=== PATIENT | female | born 1960 | race Caucasian/White ===

== ENCOUNTER 2017-02-20 13:43 | Emergency (ER) | payer SELFPAY ==
[2017-02-20 13:55] VITALS: BP 108/53
--- NOTE | 2017-02-20 15:33 | RAD ---
INDICATION: Right elbow trauma. TECHNIQUE: 4 views of the right elbow were obtained. FINDINGS: The bones are normal alignment. No joint effusion is seen. There is a small fracture fragment measuring approximately 3 mm in size arising from the tip of the coronoid process of the ulna. Joint spaces appear maintained. IMPRESSION: SMALL FRACTURE FRAGMENT ARISING FROM THE TIP OF THE CORONOID PROCESS OF THE ULNA.
--- NOTE | 2017-02-20 15:35 | UC ---
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 Has been aching since then but going to work, here for evaluation today. - History of Current Complaint Chief Complaint: UCUpperExtremity Stated Complaint: ELBOW INJURY Time Seen by Provider: 02/20/17 15:08 Hx Obtained From: Patient ?: No Severity Initially: Moderate Severity Currently: Mild Location Of Pain: Is Discrete @ Character: Aching Aggravating Factor(s): Movement - touching or banging L elbow. Associated Signs And Symptoms: Positive: Negative - Allergies/Home Medications Allergies/Adverse Reactions: Allergies Allergy/AdvReac Type Severity Reaction Status Date / Time No Known Allergies Allergy Verified 02/20/17 13:54 Home Medications: Home Medications Bupropion HCl [Wellbutrin Sr] 100 mg PO 02/20/17 [History] Sertraline HCl [Zoloft] 150 mg PO 02/20/17 [History] PMH/Surg Hx/FS Hx/Imm Hx Previously Healthy: Yes - Surgical History Surgical History: Yes - Social History Occupation: Employed Part-time - business intelligence director Alcohol Use: None Substance Use Type: None Smoking Status (MU): Never Smoked Tobacco Review of Systems Constitutional: Negative Skin: Negative Eyes: Negative ENT: Negative Respiratory: Negative Cardiovascular: Negative Gastrointestinal: Negative Genitourinary: Negative Motor: Negative Neurovascular: Negative Musculoskeletal: Arthralgia - L elbow Neurological: Negative Psychological: Negative All Other Systems Reviewed And Are Negative: Yes Physical Exam Triage Information Reviewed: Yes Appearance: Well-Appearing, No Pain Distress, Well-Nourished Vital Signs: Initial Vital Signs Temp 98.5 F 02/20/17 13:52 Pulse 94 02/20/17 13:52 Resp 18 02/20/17 13:52 BP 108/53 02/20/17 13:52 Pulse Ox 97 02/20/17 13:52 Vital Signs Reviewed: Yes Eye Exam: Normal Eyes: Positive: Conjunctiva Clear ENT Exam: Normal ENT: Positive: Normal ENT inspection Neck exam: Normal Neck: Positive: Supple, Nontender Respiratory Exam: Normal Respiratory: Positive: Chest non-tender, Lungs clear, Normal breath sounds, No respiratory distress, No accessory muscle use Cardiovascular Exam: Normal Cardiovascular: Positive: RRR, No Murmur Musculoskeletal Exam: Other - no bony tenderness in L elbow Musculoskeletal: Positive: Strength Intact, ROM Intact Neurological Exam: Normal Neurological: Positive: Alert Psychological Exam: Normal Skin Exam: Normal Elbow Pain Course/Dx - Course Course Of Treatment: Advised pt to f/u with ortho because of x-ray finding. That particular bony injury is not likely from a simple contusion and pt has full strength and ROM, so I do not think it is acute. - Differential Dx/Diagnosis Provider Diagnoses: L elbow contusion. fracture of coronoid process of the L elbow presumed to be old Discharge - Discharge Plan Condition: Stable Disposition: HOME Patient Education Materials: Contusion in Adults (ED) Referrals: Mumtaz Winn MD [Medical Doctor] - 1 Week Additional Instructions: You appear to have a nerve contusion. The fracture in your elbow is very likely to be old, but you should follow up with the orthopedist to make sure.
== END 2017-02-20 15:48 | disposition home or self-care (01) ==
LOC: UCEAST 13:43
DX: S50.02XA Contusion of left elbow, initial encounter (principal); S52.041A Displaced fracture of coronoid process of right ulna, initial encounter for closed fracture; W22.8XXA Striking against or struck by other objects, initial encounter; Y93.9 Activity, unspecified; Y92.9 Unspecified place or not applicable
CPT/HCPCS: 99212; G0463

== ENCOUNTER 2023-05-22 14:10 | Inpatient (IN) ==
[2023-05-22] MEDS ORDERED: Senna TAB 8.6 mg TAB PO PRN (15:46)
[2023-05-22] MEDS ORDERED: Magnesium Hydroxide LIQ 30 ML UDC PO PRN (15:46)
[2023-05-22] MEDS ORDERED: ceFAZolin 2 GM in NS PREMIX 2 GM/100 ML BAG IVPB SCH (17:00)
[2023-05-22] MEDS: ceFAZolin 2 GM PREMIX 2 GM/50 ML BAG IV SCH (18:00)
[2023-05-22] MEDS: Enoxaparin 40 MG/0.4 ML SYR SUBCUT SCH (18:00)
[2023-05-23] MEDS: ceFAZolin 2 GM PREMIX 2 GM/50 ML BAG IV SCH ×3 (00:56→18:55)
[2023-05-23 07:00] LABS: ABS Lymphocytes 1.2 10^3/uL (1.0-4.8); ABS Monocytes 0.7 10^3/uL (0.0-0.9); ABS Neutrophils 10.2 10^3/uL (1.5-7.6); Eosinophil % 0.4 %; Hematocrit 27.4 % (35-45); Hemoglobin 9.4 g/dL (11.5-14.3); Lymphocyte % 9.5 %; Mean Corpuscular Hemoglobin 31.2 pg (27-33); Mean Corpuscular Hgb Conc 34.4 g/dL (31-36); Mean Corpuscular Volume 90.7 fL (80-97); Mean Platelet Volume 6.7 fL (7.5-11.2); Platelet Count 325 10^3/uL (150-450); Red Blood Count 3.02 10^6/uL (3.63-4.92); Red Cell Distribution Width 12.8 % (12-17); White Blood Count 12.1 10^3/uL (3.8-11.8)
[2023-05-23 07:16] LABS: Albumin 2.9 g/dL (3.2-5.2); Albumin/Globulin Ratio 0.9 (1-3); C Reactive Protein 334.9 mg/L (<8.01); Calcium 7.9 mg/dL (8.6-10.3); Creatinine, Serum 0.51 mg/dL (0.51-0.95); Globulin 3.1 g/dL (2-4); Potassium 3.6 mmol/L (3.5-5.0); Total Bilirubin 0.3 mg/dL (0.2-1.0); eGFR CKD-EPI 104.8 (>60)
[2023-05-23] MEDS: Enoxaparin 40 MG/0.4 ML SYR SUBCUT SCH (18:23)
[2023-05-24] MEDS: ceFAZolin 2 GM PREMIX 2 GM/50 ML BAG IV SCH ×3 (01:07→16:53)
[2023-05-24] MEDS: Enoxaparin 40 MG/0.4 ML SYR SUBCUT SCH (15:05)
[2023-05-25] MEDS: ceFAZolin 2 GM PREMIX 2 GM/50 ML BAG IV SCH ×3 (01:56→17:43)
[2023-05-25] MEDS: Enoxaparin 40 MG/0.4 ML SYR SUBCUT SCH (15:28)
[2023-05-26] MEDS: ceFAZolin 2 GM PREMIX 2 GM/50 ML BAG IV SCH ×3 (01:55→18:28)
[2023-05-26 05:56] LABS: ABS Lymphocytes 1.4 10^3/uL (1.0-4.8); ABS Monocytes 0.7 10^3/uL (0.0-0.9); ABS Neutrophils 6.6 10^3/uL (1.5-7.6); Eosinophil % 0.5 %; Hematocrit 27.7 % (35-45); Hemoglobin 9.6 g/dL (11.5-14.3); Lymphocyte % 15.8 %; Mean Corpuscular Hgb Conc 34.5 g/dL (31-36); Mean Corpuscular Volume 89.8 fL (80-97); Platelet Count 443 10^3/uL (150-450); Red Blood Count 3.09 10^6/uL (3.63-4.92); Red Cell Distribution Width 12.9 % (12-17); White Blood Count 8.7 10^3/uL (3.8-11.8)
[2023-05-26] MEDS: Enoxaparin 40 MG/0.4 ML SYR SUBCUT SCH (17:09)
[2023-05-26 17:30] LABS: Urine Appearance Cloudy; Urine Bilirubin Negative (Negative); Urine Blood Negative (Negative); Urine Color Yellow; Urine Glucose Negative (Negative); Urine Ketones Negative (Negative); Urine Nitrite Negative (Negative); Urine Protein 1+(30 mg/dL) (Negative); Urine Specific Gravity 1.028 (1.002-1.030); Urine Urobilinogen Negative (Negative)
[2023-05-26 17:38] LABS: Urine Bacteria Absent (Absent); Urine Red Blood Cell 1+(3-5/hpf) (Absent); Urine Squamous Epithelial Cell Present (Absent); Urine White Blood Cell Trace(0-5/hpf) (Absent)
[2023-05-27] MEDS: ceFAZolin 2 GM PREMIX 2 GM/50 ML BAG IV SCH ×3 (00:56→17:33)
[2023-05-27] MEDS: Enoxaparin 40 MG/0.4 ML SYR SUBCUT SCH (16:31)
[2023-05-28] MEDS: ceFAZolin 2 GM PREMIX 2 GM/50 ML BAG IV SCH ×3 (01:02→17:28)
[2023-05-28] MEDS: Enoxaparin 40 MG/0.4 ML SYR SUBCUT SCH (17:29)
[2023-05-29] MEDS: ceFAZolin 2 GM PREMIX 2 GM/50 ML BAG IV SCH ×3 (01:02→17:28)
[2023-05-29] MEDS: PAIN RELIEVING RUB (MENTHOL/SALICYLATE) 1 APPLIC TUBE TOPICAL PRN ×2 (11:39→19:59)
[2023-05-29] MEDS: Enoxaparin 40 MG/0.4 ML SYR SUBCUT SCH (15:42)
[2023-05-30] MEDS: ceFAZolin 2 GM PREMIX 2 GM/50 ML BAG IV SCH ×3 (01:33→16:53)
[2023-05-30 07:42] LABS: ABS Eosinophils 0.1 10^3/uL (0.0-0.5); ABS Lymphocytes 2.8 10^3/uL (1.0-4.8); ABS Monocytes 0.5 10^3/uL (0.0-0.9); ABS Neutrophils 6.2 10^3/uL (1.5-7.6); Eosinophil % 0.6 %; Hematocrit 27.5 % (35-45); Hemoglobin 9.4 g/dL (11.5-14.3); Lymphocyte % 29.5 %; Mean Corpuscular Hgb Conc 34.3 g/dL (31-36); Mean Corpuscular Volume 90.5 fL (80-97); Mean Platelet Volume 7.1 fL (7.5-11.2); Platelet Count 770 10^3/uL (150-450); Red Blood Count 3.04 10^6/uL (3.63-4.92); Red Cell Distribution Width 12.7 % (12-17); White Blood Count 9.7 10^3/uL (3.8-11.8)
[2023-05-30 08:39] LABS: Albumin/Globulin Ratio 0.8 (1-3); C Reactive Protein 189.68 mg/L (<8.01); Creatinine, Serum 0.69 mg/dL (0.51-0.95); Globulin 3.9 g/dL (2-4); Potassium 3.4 mmol/L (3.5-5.0); Total Bilirubin 0.3 mg/dL (0.2-1.0); Total Protein 6.9 g/dL (6.4-8.9); eGFR CKD-EPI 97.5 (>60)
[2023-05-30] MEDS: Enoxaparin 40 MG/0.4 ML SYR SUBCUT SCH (16:53)
[2023-05-30] MEDS ORDERED: Potassium Chlor 20 meq TAB.ER PO ONE (19:17)
[2023-05-30] MEDS: PAIN RELIEVING RUB (MENTHOL/SALICYLATE) 1 APPLIC TUBE TOPICAL PRN (20:52)
[2023-05-31] MEDS: ceFAZolin 2 GM PREMIX 2 GM/50 ML BAG IV SCH ×3 (00:50→17:35)
[2023-05-31] MEDS: Potassium Chlor 20 meq TAB.ER PO SCH (08:14)
[2023-05-31] MEDS: PAIN RELIEVING RUB (MENTHOL/SALICYLATE) 1 APPLIC TUBE TOPICAL PRN (08:15)
[2023-05-31] MEDS: Enoxaparin 40 MG/0.4 ML SYR SUBCUT SCH (15:40)
[2023-06-01] MEDS: ceFAZolin 2 GM PREMIX 2 GM/50 ML BAG IV SCH ×3 (00:56→17:38)
[2023-06-01] MEDS: Potassium Chlor 20 meq TAB.ER PO SCH (08:16)
[2023-06-01] MEDS: PAIN RELIEVING RUB (MENTHOL/SALICYLATE) 1 APPLIC TUBE TOPICAL PRN ×2 (12:28→18:23)
[2023-06-01] MEDS: Enoxaparin 40 MG/0.4 ML SYR SUBCUT SCH (16:34)
[2023-06-02] MEDS: ceFAZolin 2 GM PREMIX 2 GM/50 ML BAG IV SCH ×3 (01:10→19:03)
[2023-06-02] MEDS: Potassium Chlor 20 meq TAB.ER PO SCH (08:11)
[2023-06-02] MEDS: PAIN RELIEVING RUB (MENTHOL/SALICYLATE) 1 APPLIC TUBE TOPICAL PRN (08:26)
[2023-06-02] MEDS: Enoxaparin 40 MG/0.4 ML SYR SUBCUT SCH (15:59)
[2023-06-03] MEDS: ceFAZolin 2 GM PREMIX 2 GM/50 ML BAG IV SCH ×3 (01:39→17:37)
[2023-06-03] MEDS: Potassium Chlor 20 meq TAB.ER PO SCH (09:08)
[2023-06-03] MEDS: PAIN RELIEVING RUB (MENTHOL/SALICYLATE) 1 APPLIC TUBE TOPICAL PRN (12:13)
[2023-06-03] MEDS: Enoxaparin 40 MG/0.4 ML SYR SUBCUT SCH (17:38)
[2023-06-04] MEDS: ceFAZolin 2 GM PREMIX 2 GM/50 ML BAG IV SCH ×3 (00:24→17:23)
[2023-06-04] MEDS: Potassium Chlor 20 meq TAB.ER PO SCH (07:38)
[2023-06-04] MEDS: Enoxaparin 40 MG/0.4 ML SYR SUBCUT SCH (16:52)
[2023-06-04] MEDS: Nystatin SUSPENSION 100,000 UNITS/ML UDC PO SCH (20:48)
[2023-06-05] MEDS: ceFAZolin 2 GM PREMIX 2 GM/50 ML BAG IV SCH ×3 (00:51→17:56)
[2023-06-05] MEDS: Potassium Chlor 20 meq TAB.ER PO SCH (09:03)
[2023-06-05] MEDS: Nystatin SUSPENSION 100,000 UNITS/ML UDC PO SCH ×4 (11:27→20:11)
[2023-06-05] MEDS: Enoxaparin 40 MG/0.4 ML SYR SUBCUT SCH (16:06)
[2023-06-05] MEDS: HYDROcodone/ACETAMIN 5/325 mg TAB PO PRN ×2 (17:51→23:46)
[2023-06-06] MEDS: ceFAZolin 2 GM PREMIX 2 GM/50 ML BAG IV SCH ×3 (00:57→17:09)
[2023-06-06 06:39] LABS: ABS Lymphocytes 2.2 10^3/uL (1.0-4.8); ABS Monocytes 0.5 10^3/uL (0.0-0.9); ABS Neutrophils 4.6 10^3/uL (1.5-7.6); Eosinophil % 0.6 %; Hematocrit 26.5 % (35-45); Hemoglobin 9.1 g/dL (11.5-14.3); Lymphocyte % 29.1 %; Mean Corpuscular Hemoglobin 30.2 pg (27-33); Mean Corpuscular Hgb Conc 34.2 g/dL (31-36); Mean Corpuscular Volume 88.1 fL (80-97); Mean Platelet Volume 6.8 fL (7.5-11.2); Platelet Count 545 10^3/uL (150-450); Red Blood Count 3.01 10^6/uL (3.63-4.92); Red Cell Distribution Width 12.9 % (12-17); White Blood Count 7.4 10^3/uL (3.8-11.8)
[2023-06-06 06:52] LABS: Albumin/Globulin Ratio 0.7 (1-3); C Reactive Protein 152.86 mg/L (<8.01); Calcium 9.2 mg/dL (8.6-10.3); Creatinine, Serum 0.8 mg/dL (0.51-0.95); Globulin 4.1 g/dL (2-4); Potassium 3.9 mmol/L (3.5-5.0); Total Bilirubin 0.3 mg/dL (0.2-1.0); Total Protein 7.1 g/dL (6.4-8.9); eGFR CKD-EPI 82.7 (>60)
[2023-06-06] MEDS: Potassium Chlor 20 meq TAB.ER PO SCH (08:10)
[2023-06-06] MEDS: HYDROcodone/ACETAMIN 5/325 mg TAB PO PRN ×3 (08:10→20:41)
[2023-06-06] MEDS: Nystatin SUSPENSION 100,000 UNITS/ML UDC PO SCH ×4 (08:15→20:41)
[2023-06-06] MEDS ORDERED: NS 0.9% 1000 ml BAG 1,000 ML IV SCH (12:15)
[2023-06-06] MEDS: Enoxaparin 40 MG/0.4 ML SYR SUBCUT SCH (16:42)
[2023-06-06] MEDS: PAIN RELIEVING RUB (MENTHOL/SALICYLATE) 1 APPLIC TUBE TOPICAL PRN (20:41)
[2023-06-07] MEDS: HYDROcodone/ACETAMIN 5/325 mg TAB PO PRN ×5 (00:43→21:03)
[2023-06-07] MEDS: ceFAZolin 2 GM PREMIX 2 GM/50 ML BAG IV SCH ×3 (00:45→17:08)
[2023-06-07] MEDS: Potassium Chlor 20 meq TAB.ER PO SCH (08:38)
[2023-06-07] MEDS: PAIN RELIEVING RUB (MENTHOL/SALICYLATE) 1 APPLIC TUBE TOPICAL PRN (08:42)
[2023-06-07] MEDS: Nystatin SUSPENSION 100,000 UNITS/ML UDC PO SCH ×4 (08:45→21:04)
[2023-06-07] MEDS ORDERED: Hemorrhoidal OINT 1 TUBE PR PRN (11:47)
[2023-06-07] MEDS: Enoxaparin 40 MG/0.4 ML SYR SUBCUT SCH (17:04)
[2023-06-08] MEDS: ceFAZolin 2 GM PREMIX 2 GM/50 ML BAG IV SCH ×3 (01:46→16:13)
[2023-06-08] MEDS: HYDROcodone/ACETAMIN 5/325 mg TAB PO PRN ×4 (06:01→21:24)
[2023-06-08] MEDS: Potassium Chlor 20 meq TAB.ER PO SCH (09:05)
[2023-06-08] MEDS: Nystatin SUSPENSION 100,000 UNITS/ML UDC PO SCH ×4 (09:07→21:30)
[2023-06-08] MEDS: Enoxaparin 40 MG/0.4 ML SYR SUBCUT SCH (15:39)
[2023-06-08] MEDS: PAIN RELIEVING RUB (MENTHOL/SALICYLATE) 1 APPLIC TUBE TOPICAL PRN (19:15)
[2023-06-09] MEDS: HYDROcodone/ACETAMIN 5/325 mg TAB PO PRN ×5 (01:26→20:53)
[2023-06-09] MEDS: ceFAZolin 2 GM PREMIX 2 GM/50 ML BAG IV SCH ×3 (01:28→16:59)
[2023-06-09] MEDS: Potassium Chlor 20 meq TAB.ER PO SCH (09:06)
[2023-06-09] MEDS: Nystatin SUSPENSION 100,000 UNITS/ML UDC PO SCH ×4 (10:50→20:53)
[2023-06-09] MEDS: PAIN RELIEVING RUB (MENTHOL/SALICYLATE) 1 APPLIC TUBE TOPICAL PRN (12:08)
[2023-06-09] MEDS: Enoxaparin 40 MG/0.4 ML SYR SUBCUT SCH (16:14)
[2023-06-10] MEDS: ceFAZolin 2 GM PREMIX 2 GM/50 ML BAG IV SCH ×3 (01:01→17:31)
[2023-06-10] MEDS: HYDROcodone/ACETAMIN 5/325 mg TAB PO PRN ×5 (03:36→20:45)
[2023-06-10] MEDS: Nystatin SUSPENSION 100,000 UNITS/ML UDC PO SCH ×4 (08:12→22:02)
[2023-06-10] MEDS: Potassium Chlor 20 meq TAB.ER PO SCH (08:12)
[2023-06-10] MEDS: Enoxaparin 40 MG/0.4 ML SYR SUBCUT SCH (17:30)
[2023-06-11] MEDS: ceFAZolin 2 GM PREMIX 2 GM/50 ML BAG IV SCH ×3 (00:29→17:10)
[2023-06-11] MEDS: HYDROcodone/ACETAMIN 5/325 mg TAB PO PRN ×5 (03:09→23:23)
[2023-06-11] MEDS: Potassium Chlor 20 meq TAB.ER PO SCH (09:41)
[2023-06-11] MEDS: Nystatin SUSPENSION 100,000 UNITS/ML UDC PO SCH ×3 (09:50→18:05)
[2023-06-11] MEDS: Enoxaparin 40 MG/0.4 ML SYR SUBCUT SCH (16:07)
[2023-06-12] MEDS: ceFAZolin 2 GM PREMIX 2 GM/50 ML BAG IV SCH ×3 (00:55→17:25)
[2023-06-12] MEDS: HYDROcodone/ACETAMIN 5/325 mg TAB PO PRN ×4 (05:42→20:06)
[2023-06-12] MEDS: Potassium Chlor 20 meq TAB.ER PO SCH (07:32)
[2023-06-12] MEDS: Enoxaparin 40 MG/0.4 ML SYR SUBCUT SCH (15:55)
[2023-06-13] MEDS: ceFAZolin 2 GM PREMIX 2 GM/50 ML BAG IV SCH ×3 (00:45→17:27)
[2023-06-13] MEDS: HYDROcodone/ACETAMIN 5/325 mg TAB PO PRN ×4 (04:07→17:30)
[2023-06-13 06:42] LABS: ABS Lymphocytes 1.8 10^3/uL (1.0-4.8); ABS Monocytes 0.5 10^3/uL (0.0-0.9); ABS Nucleated RBC 0.01 10^3/ul; Eosinophil % 0.7 %; Hematocrit 24.2 % (35-45); Hemoglobin 8.3 g/dL (11.5-14.3); Lymphocyte % 28.7 %; Mean Corpuscular Hemoglobin 30.2 pg (27-33); Mean Corpuscular Hgb Conc 34.2 g/dL (31-36); Mean Corpuscular Volume 88.3 fL (80-97); Mean Platelet Volume 6.8 fL (7.5-11.2); Nucleated Red Blood Cells % 0.1 %/100WBC (0.0-0.8); Platelet Count 283 10^3/uL (150-450); Red Blood Count 2.74 10^6/uL (3.63-4.92); Red Cell Distribution Width 13.5 % (12-17); White Blood Count 6.4 10^3/uL (3.8-11.8)
[2023-06-13 07:09] LABS: Anion Gap 9 mmol/L (2-16); Blood Urea Nitrogen 9 mg/dL (6-24); C Reactive Protein 107.48 mg/L (<8.01); CO2 Carbon Dioxide 29 mmol/L (22-32); Calcium 8.8 mg/dL (8.6-10.3); Chloride 101 mmol/L (101-111); Creatinine, Serum 0.67 mg/dL (0.51-0.95); Glucose 102 mg/dL (70-100); Potassium 3.8 mmol/L (3.5-5.0); Sodium 139 mmol/L (135-145); eGFR CKD-EPI 98.1 (>60)
[2023-06-13 07:22] LABS: ALT < 3 U/L (7-52); AST 10 U/L (13-39); Albumin 2.8 g/dL (3.2-5.2); Albumin/Globulin Ratio 0.8 (1-3); Alkaline Phosphatase 117 U/L (35-149); Globulin 3.6 g/dL (2-4); Total Protein 6.4 g/dL (6.4-8.9)
[2023-06-13] MEDS: Potassium Chlor 20 meq TAB.ER PO SCH (09:43)
[2023-06-13] MEDS: Enoxaparin 40 MG/0.4 ML SYR SUBCUT SCH (17:26)
[2023-06-14] MEDS: HYDROcodone/ACETAMIN 5/325 mg TAB PO PRN ×5 (00:03→23:14)
[2023-06-14] MEDS: ceFAZolin 2 GM PREMIX 2 GM/50 ML BAG IV SCH ×3 (00:08→17:18)
[2023-06-14] MEDS: Potassium Chlor 20 meq TAB.ER PO SCH (08:11)
[2023-06-14] MEDS: Ondansetron ODT 4 mg TAB 4 MG TAB PO PRN (13:41)
[2023-06-14] MEDS: PAIN RELIEVING RUB (MENTHOL/SALICYLATE) 1 APPLIC TUBE TOPICAL PRN (14:16)
[2023-06-14] MEDS: Enoxaparin 40 MG/0.4 ML SYR SUBCUT SCH (16:23)
[2023-06-15] MEDS: ceFAZolin 2 GM PREMIX 2 GM/50 ML BAG IV SCH ×3 (01:19→17:04)
[2023-06-15] MEDS: HYDROcodone/ACETAMIN 5/325 mg TAB PO PRN ×4 (04:34→20:01)
[2023-06-15] MEDS: Potassium Chlor 20 meq TAB.ER PO SCH (08:10)
[2023-06-15] MEDS: Enoxaparin 40 MG/0.4 ML SYR SUBCUT SCH (16:00)
[2023-06-15] MEDS: PAIN RELIEVING RUB (MENTHOL/SALICYLATE) 1 APPLIC TUBE TOPICAL PRN (16:00)
[2023-06-15] MEDS: Ondansetron ODT 4 mg TAB 4 MG TAB PO PRN (19:20)
[2023-06-16] MEDS: HYDROcodone/ACETAMIN 5/325 mg TAB PO PRN ×5 (00:03→18:22)
[2023-06-16] MEDS: ceFAZolin 2 GM PREMIX 2 GM/50 ML BAG IV SCH ×3 (01:04→17:13)
[2023-06-16] MEDS: PAIN RELIEVING RUB (MENTHOL/SALICYLATE) 1 APPLIC TUBE TOPICAL PRN ×2 (08:12→17:08)
[2023-06-16] MEDS: Potassium Chlor 20 meq TAB.ER PO SCH (09:21)
[2023-06-16] MEDS: Enoxaparin 40 MG/0.4 ML SYR SUBCUT SCH (17:08)
[2023-06-17] MEDS: HYDROcodone/ACETAMIN 5/325 mg TAB PO PRN ×4 (00:35→18:10)
[2023-06-17] MEDS: ceFAZolin 2 GM PREMIX 2 GM/50 ML BAG IV SCH ×3 (00:38→17:33)
[2023-06-17 06:58] LABS: ABS Lymphocytes 1.8 10^3/uL (1.0-4.8); ABS Monocytes 0.5 10^3/uL (0.0-0.9); ABS Neutrophils 5.2 10^3/uL (1.5-7.6); Eosinophil % 0.6 %; Hematocrit 27.2 % (35-45); Mean Corpuscular Hemoglobin 29.3 pg (27-33); Mean Corpuscular Hgb Conc 33.2 g/dL (31-36); Mean Corpuscular Volume 88.1 fL (80-97); Mean Platelet Volume 6.9 fL (7.5-11.2); Platelet Count 351 10^3/uL (150-450); Red Blood Count 3.09 10^6/uL (3.63-4.92); Red Cell Distribution Width 13.7 % (12-17); White Blood Count 7.7 10^3/uL (3.8-11.8)
[2023-06-17 07:13] LABS: Anion Gap 8 mmol/L (2-16); Blood Urea Nitrogen 10 mg/dL (6-24); C Reactive Protein 96.31 mg/L (<8.01); CO2 Carbon Dioxide 29 mmol/L (22-32); Calcium 9.4 mg/dL (8.6-10.3); Chloride 100 mmol/L (101-111); Creatinine, Serum 0.75 mg/dL (0.51-0.95); Glucose 108 mg/dL (70-100); Potassium 4.1 mmol/L (3.5-5.0); Sodium 137 mmol/L (135-145); eGFR CKD-EPI 89.4 (>60)
[2023-06-17 07:15] LABS: ALT < 3 U/L (7-52); AST 10 U/L (13-39); Albumin 3.3 g/dL (3.2-5.2); Albumin/Globulin Ratio 0.8 (1-3); Alkaline Phosphatase 136 U/L (35-149); Globulin 4.2 g/dL (2-4); Total Protein 7.5 g/dL (6.4-8.9)
[2023-06-17] MEDS: Potassium Chlor 20 meq TAB.ER PO SCH (09:22)
[2023-06-17] MEDS: PAIN RELIEVING RUB (MENTHOL/SALICYLATE) 1 APPLIC TUBE TOPICAL PRN (16:01)
[2023-06-17] MEDS: Enoxaparin 40 MG/0.4 ML SYR SUBCUT SCH (16:01)
[2023-06-17] MEDS: Ondansetron ODT 4 mg TAB 4 MG TAB PO PRN (16:09)
[2023-06-18] MEDS: HYDROcodone/ACETAMIN 5/325 mg TAB PO PRN ×4 (00:17→16:20)
[2023-06-18] MEDS: Potassium Chlor 20 meq TAB.ER PO SCH (08:57)
[2023-06-18] MEDS: Ondansetron ODT 4 mg TAB 4 MG TAB PO PRN (11:06)
[2023-06-18] MEDS ORDERED: Al Hydrox/Mg Hydrox/Simet LIQ 30 ML UDC PO ONE (11:48)
[2023-06-18] MEDS: PAIN RELIEVING RUB (MENTHOL/SALICYLATE) 1 APPLIC TUBE TOPICAL PRN (12:18)
[2023-06-18 13:55] LABS: High Sensitivity Troponin 1 Hr < 3 pg/mL (<15)
[2023-06-18] MEDS: Enoxaparin 40 MG/0.4 ML SYR SUBCUT SCH (16:17)
[2023-06-19] MEDS: Ondansetron ODT 4 mg TAB 4 MG TAB PO PRN (05:13)
[2023-06-19] MEDS: HYDROcodone/ACETAMIN 5/325 mg TAB PO PRN ×3 (08:09→17:54)
[2023-06-19] MEDS: Potassium Chlor 20 meq TAB.ER PO SCH (08:10)
[2023-06-19] MEDS: Enoxaparin 40 MG/0.4 ML SYR SUBCUT SCH (15:51)
[2023-06-20] MEDS: HYDROcodone/ACETAMIN 5/325 mg TAB PO PRN ×5 (01:00→21:26)
[2023-06-20] MEDS: Potassium Chlor 20 meq TAB.ER PO SCH (08:30)
[2023-06-20] MEDS: Enoxaparin 40 MG/0.4 ML SYR SUBCUT SCH (16:40)
[2023-06-20] MEDS: Ondansetron ODT 4 mg TAB 4 MG TAB PO PRN (16:55)
[2023-06-21] MEDS: HYDROcodone/ACETAMIN 5/325 mg TAB PO PRN ×3 (05:08→19:44)
[2023-06-21] MEDS: Ondansetron ODT 4 mg TAB 4 MG TAB PO PRN ×2 (05:12→21:52)
[2023-06-21] MEDS: Potassium Chlor 20 meq TAB.ER PO SCH (10:03)
[2023-06-21] MEDS: Enoxaparin 40 MG/0.4 ML SYR SUBCUT SCH (16:08)
[2023-06-22] MEDS: HYDROcodone/ACETAMIN 5/325 mg TAB PO PRN ×4 (00:28→21:12)
[2023-06-22] MEDS: Potassium Chlor 20 meq TAB.ER PO SCH (08:46)
[2023-06-22] MEDS: Enoxaparin 40 MG/0.4 ML SYR SUBCUT SCH (15:36)
[2023-06-22] MEDS: Ondansetron ODT 4 mg TAB 4 MG TAB PO PRN (21:13)
[2023-06-23] MEDS: HYDROcodone/ACETAMIN 5/325 mg TAB PO PRN ×5 (02:08→19:43)
[2023-06-23] MEDS: Potassium Chlor 20 meq TAB.ER PO SCH (11:54)
[2023-06-23] MEDS: Enoxaparin 40 MG/0.4 ML SYR SUBCUT SCH (16:13)
[2023-06-24] MEDS: Ondansetron ODT 4 mg TAB 4 MG TAB PO PRN ×2 (05:18→21:41)
[2023-06-24 05:20] LABS: ABS Basophils 0.1 10^3/uL (0.0-0.1); ABS Eosinophils 0.1 10^3/uL (0.0-0.5); ABS Lymphocytes 2.1 10^3/uL (1.0-4.8); ABS Monocytes 0.4 10^3/uL (0.0-0.9); ABS Neutrophils 4.9 10^3/uL (1.5-7.6); Hematocrit 26.2 % (35-45); Hemoglobin 8.8 g/dL (11.5-14.3); Mean Corpuscular Hemoglobin 29.5 pg (27-33); Mean Corpuscular Hgb Conc 33.7 g/dL (31-36); Mean Corpuscular Volume 87.4 fL (80-97); Mean Platelet Volume 6.8 fL (7.5-11.2); Nucleated Red Blood Cells % 0.1 %/100WBC (0.0-0.8); Platelet Count 397 10^3/uL (150-450); Red Blood Count 2.99 10^6/uL (3.63-4.92); Red Cell Distribution Width 14.2 % (12-17); White Blood Count 7.5 10^3/uL (3.8-11.8)
[2023-06-24 05:34] LABS: Albumin 3.2 g/dL (3.2-5.2); Albumin/Globulin Ratio 0.8 (1-3); C Reactive Protein 78.65 mg/L (<8.01); Calcium 9.3 mg/dL (8.6-10.3); Creatinine, Serum 0.7 mg/dL (0.51-0.95); Globulin 3.8 g/dL (2-4); Potassium 4.1 mmol/L (3.5-5.0); Total Bilirubin 0.3 mg/dL (0.2-1.0); eGFR CKD-EPI 97.1 (>60)
[2023-06-24] MEDS: Potassium Chlor 20 meq TAB.ER PO SCH (08:26)
[2023-06-24] MEDS: HYDROcodone/ACETAMIN 5/325 mg TAB PO PRN ×3 (08:27→16:45)
[2023-06-24] MEDS: Enoxaparin 40 MG/0.4 ML SYR SUBCUT SCH (16:45)
[2023-06-25] MEDS: Potassium Chlor 20 meq TAB.ER PO SCH (08:46)
[2023-06-25] MEDS: HYDROcodone/ACETAMIN 5/325 mg TAB PO PRN ×3 (08:47→18:16)
[2023-06-25] MEDS: Ondansetron ODT 4 mg TAB 4 MG TAB PO PRN ×2 (09:04→21:55)
[2023-06-25] MEDS: Enoxaparin 40 MG/0.4 ML SYR SUBCUT SCH (16:26)
[2023-06-26] MEDS: HYDROcodone/ACETAMIN 5/325 mg TAB PO PRN ×3 (00:40→11:22)
[2023-06-26] MEDS: Ondansetron ODT 4 mg TAB 4 MG TAB PO PRN (06:54)
[2023-06-26 07:00] VITALS: BP 115/70
[2023-06-26] MEDS: Potassium Chlor 20 meq TAB.ER PO SCH (07:41)
[2023-06-26] MEDS ORDERED: Aspirin EC 81 mg TAB.EC (enteric coated) PO SCH (09:00)
== END 2023-06-26 12:15 | disposition home or self-care (01) | DRG 344 ==
LOC: PMRU 15:37
PROVIDERS: ADMIT Physical Medicine & Rehabilitation; ATTEND Physical Medicine & Rehabilitation